=== PATIENT | male | born 2005 | race Asian ===

== ENCOUNTER 2023-02-07 12:10 | Observation (INO) ==
[~2023-02-07 12:10] MED LIST: Buffered Lidocaine 1% SYRIN 1 ml INTRADERM ONE; Lactated Ringers 1000 ml BAG 1,000 ML IV SCH
[2023-02-07] MEDS ORDERED: ceFAZolin 2 GM PREMIX 2 GM/50 ML BAG ONE (12:39)
[2023-02-07 12:51] LABS: Rapid COVID-19 Molecular Undetected (Undetected)
[2023-02-07] MEDS ORDERED: Propofol 10 MG/ML 20 ML BTL ONE (16:50)
[2023-02-07] MEDS ORDERED: Lidocaine 2% PF 5 ML VIAL ONE (16:50)
[2023-02-07] MEDS ORDERED: Midazolam 2 mg/2 ml VIAL 1 mg/ml 2 ml VIAL (2 mg) ONE (16:50)
[2023-02-07] MEDS ORDERED: fentaNYL 100 mcg/2 ml 50 MCG/ML VIAL ONE ×2 (16:50→22:07)
[2023-02-07] MEDS ORDERED: Dexamethasone IV 4 MG/ML VIAL 1 ml VIAL ONE (16:55)
[2023-02-07] MEDS ORDERED: Ondansetron 4 mg VIAL 2 MG/ML 2 ml VIAL ONE (16:55)
[2023-02-07] MEDS ORDERED: Bupivacaine 0.5% 50 ML MDV VIAL ONE (17:36)
[2023-02-07] MEDS ORDERED: Acetaminophen IV 1 GM/100ML 1,000 MG/100 ML BAG IV PRN ×2 (17:57→19:20)
[2023-02-07] MEDS ORDERED: HYDROmorphone 1 MG/1 ML SYRINGE IV PRN (17:57)
[2023-02-07] MEDS ORDERED: fentaNYL 100 mcg/2 ml 50 MCG/ML VIAL IV PRN (17:57)
[2023-02-07] MEDS ORDERED: Ondansetron 4 mg VIAL 2 MG/ML 2 ml VIAL IV PRN ×2 (17:57→19:11)
[2023-02-07] MEDS ORDERED: Naloxone 0.4 mg VIAL 0.4 mg/ml 1 ml VIAL IV PRN (17:57)
[2023-02-07] MEDS ORDERED: Phenylephrine 40 mcg/mL 10mL (400mcg) SYRINGE ONE (18:38)
[2023-02-07] MEDS ORDERED: Acetaminophen IV 1 GM/100ML 1,000 MG/100 ML BAG IV ONE (18:38)
[2023-02-07] MEDS ORDERED: Ondansetron ODT 4 mg TAB 4 MG TAB PO PRN (19:11)
[2023-02-07] MEDS ORDERED: Lactulose 30 ml UDC PO PRN (19:11)
[2023-02-07] MEDS ORDERED: Magnesium Hydroxide LIQ 30 ML UDC PO PRN (19:11)
[2023-02-07] MEDS ORDERED: HYDROmorphone 0.5 MG/0.5 ML SYRINGE ONE ×2 (19:32→20:55)
[2023-02-07] MEDS ORDERED: KETAMINE HCL 10 MG/ML 20 ml VIAL (200 MG) ONE (19:57)
[2023-02-07] MEDS ORDERED: Lactated Ringers 1000 ml BAG 1,000 ML IV SCH (20:00)
[2023-02-08] MEDS: Magnesium Hydroxide LIQ 30 ML UDC PO SCH ×2 (00:46→07:48)
[2023-02-08] MEDS: ceFAZolin 1 GM ADVAN 1 GM in NS 0.9% 50 ML 50 ML IVPB SCH ×2 (03:21→10:23)
[2023-02-08 06:23] LABS: Hemoglobin 12.9 g/dL (13.2-16.3); Mean Platelet Volume 8.4 fL (7.5-11.2); Platelet Count 267 10^3/uL (150-450)
[2023-02-08 06:31] VITALS: BP 128/73
[2023-02-08 06:47] LABS: Calcium 9.2 mg/dL (8.6-10.3); Creatinine, Serum 0.98 mg/dL (0.67-1.17); Potassium 4.5 mmol/L (3.5-5.0); eGFR CKD-EPI 113.9 (>60)
[2023-02-08] MEDS ORDERED: Vitamin THERAPEUTIC TAB PO SCH (09:00)
[2023-02-08] MEDS ORDERED: Influenza vaccine *QUAD* *2023-24* 0.5 ML SYRINGE IM ONE (11:30)
== END 2023-02-08 14:10 | disposition home or self-care (01) ==
LOC: SSU 12:10 → OR 12:10
PROVIDERS: ADMIT Orthopaedic Surgery; ATTEND Orthopaedic Surgery